=== PATIENT | female | born 1975 | race Caucasian/White ===

== ENCOUNTER 2021-05-02 11:11 | Outpatient (CLI) | payer BC | END 2021-05-02 11:12 | disposition home or self-care (01) | LOC: CSHMAMMO 11:11 | PROVIDERS: ATTEND Family Medicine | DX: Z12.31 Encounter for screening mammogram for malignant neoplasm of breast (principal) | CPT/HCPCS: 77063; 77067 ==

== ENCOUNTER 2021-11-13 16:16 | Outpatient (CLI) | payer BC | END 2021-11-13 16:17 | disposition home or self-care (01) | LOC: CSHCT 16:16 | PROVIDERS: ATTEND Family Medicine | DX: S06.0X0A Concussion without loss of consciousness, initial encounter (principal) | CPT/HCPCS: 70450 ==

== ENCOUNTER 2024-06-26 12:49 | Outpatient (CLI) | payer BC | END 2024-06-26 12:50 | disposition home or self-care (01) | LOC: CSHMAMMO 12:49 | PROVIDERS: ATTEND Obstetrics & Gynecology | DX: N63.11 Unspecified lump in the right breast, upper outer quadrant (principal) | CPT/HCPCS: 77066; G0279 ==